=== PATIENT | male | born 1990 | race Caucasian/White ===

== ENCOUNTER → 2021-10-04 | Outpatient (CLI) | payer MEDICARE, OTHER ==
[~2021-10-04] MED LIST: AMOX500 PO; CODACE30 PO; GLYCOLAX POWDER; HYDACE5 PO; HYDHCL10 PO; HYDR1TAB94 PO; ISODICACE PO; MEDICAL MARIJUANA; OMEP20ER PO; PERM5TC TOP; Prozac PO; RANI150; RXCODACET PO
[2021-10-04 14:46] LABS: Bun/Creatinine Ratio 13.5 (12.0-20.0); Calcium, Blood 9.4 mg/dL (8.5-10.1); Creatinine, Blood 1.04 mg/dL (0.60-1.20); Potassium, Blood 3.8 mmol/L (3.5-5.5)
== END | disposition home or self-care (01) ==
LOC: LAB 14:30 → LAB SHORT 14:30
PROVIDERS: Chiropractor
DX: E86.0 Dehydration (principal)
CPT/HCPCS: 80048